=== PATIENT | male | born 1940 | race Caucasian/White ===

== ENCOUNTER → 2019-09-22 13:45 | Outpatient (BNVA) | payer MEDICARE, MEDICAID, SELFPAY | PROVIDERS: Family Provider Family Medicine; PCP Family Medicine; Visit Provider Nurse Practitioner | DX: F20.5 Residual schizophrenia (principal); F33.42 Major depressive disorder, recurrent, in full remission | CPT/HCPCS: 99213 ==

== ENCOUNTER → 2019-12-12 08:23 | Outpatient (BNVA) | payer MEDICARE, MEDICAID, SELFPAY | PROVIDERS: Family Provider Family Medicine; PCP Family Medicine; Visit Provider Nurse Practitioner | DX: F41.1 Generalized anxiety disorder (principal); F33.42 Major depressive disorder, recurrent, in full remission; F20.5 Residual schizophrenia | CPT/HCPCS: 99213 ==

== ENCOUNTER → 2020-04-06 07:44 | Outpatient (BNVA) | payer MEDICARE, MEDICAID, SELFPAY | PROVIDERS: Family Provider Family Medicine; PCP Family Medicine; Visit Provider Nurse Practitioner | DX: F41.1 Generalized anxiety disorder (principal); F33.42 Major depressive disorder, recurrent, in full remission; F20.5 Residual schizophrenia | CPT/HCPCS: 99213 ==

== ENCOUNTER 2020-08-17 09:23 | Inpatient (IN) | payer MEDICARE, MEDICAID, SELFPAY ==
[2020-08-17] VITALS (34 sets, daily range): BP systolic 96–153; BP diastolic 58–103; PULSE 87–109; RESP 15–30; TEMP 36.1–36.6; O2SAT 78–97; BMI 26.2
[2020-08-17 10:17] LABS: ABG PCO2 38.7 mmHg (35-45); ABG PH Result 7.45 (7.35-7.45); Arterial Blood Gas Hematocrit 42.1 % (42-52); Base Excess ABG 2.4 mmol/L (-2.0-2.0); Blood Gas Operator Identificat GD; Blood Gas Sample Site Brachial, left; Blood Gas Sample Type Arterial; HCO3 ABG 26.6 mmol/L (22-26); Oxygen Device NC; PO2 ABG 72.9 mmHg (80.0-100.0)
[2020-08-17 11:14] LABS: Basophils % 0.2 %; Hematocrit 38.4 % (42.0-52.0); Hemoglobin 11.7 g/dL (11.7-16.6); Lymphocytes # 1.5 10^3/uL (0.8-4.8); Lymphocytes % 10.6 %; Mean Corpuscular HGB Conc 30.5 g/dL (30.0-36.0); Mean Corpuscular Volume 101.9 fL (80-94); Mean Platelet Volume 11.2 fL (7.4-10.4); Monocytes # 1.9 10^3/uL (0.2-0.9); Neutrophils # 10.16 10^3/uL (1.8-7.7); Neutrophils % 73.5 %; Nucleated Red Blood Cells % 0 %; Platelet Count 247 10^3/cmm (130-400); Red Blood Count 3.77 10^6/uL (4.1-5.3); Red Cell Distribution Width 13.4 % (12.1-15.1); White Blood Count 13.8 10^3/uL (4.0-10.0)
[2020-08-17 11:33] LABS: Alanine Aminotransferase 21 U/L (0-41); Albumin Level 2.9 g/dL (3.5-5.2); Alkaline Phosphatase 70 IU/L (40-130); Aspartate Amino Transferase 48 U/L (0-40); C Reactive Protein 273.9 mg/L (0.0-4.9); Calcium 10.3 mg/dL (8.5-10.5); Carbon Dioxide 25 mmol/L (22-29); Chloride 105 mmol/L (98-107); Globulin 4.8 g/dL (1.3-4.6); Glucose 233 mg/dL (65-115); Sodium 143 mmol/L (136-145); Total Bilirubin 0.4 mg/dL (0.15-1.2); Total Protein 7.7 g/dL (6.6-8.7)
[2020-08-17 11:34] LABS: D Dimer 8.31 ug/mIFEU (0-0.59)
[2020-08-17 11:36] LABS: Lactic Sepsis W/Reflex 1.1 mmol/L (0.5-2.2)
[2020-08-17 11:41] LABS: Creatine Phosphokinase 1052 U/L (39-308)
[2020-08-17 11:42] LABS: Blood Urea Nitrogen 126 mg/dL (8-23); Osmolality Calculated 344 mOsm/kg (285-295)
--- NOTE | 2020-08-17 11:48 | XR_ITS ---
WS: [id number] XR chest 1V portable [id number] REASON FOR EXAM: dyspnea/cough/COVID FINDINGS: Mild to moderate tortuosity the thoracic aorta without aneurysmal dilatation. The heart is mildly enl arged. Calcified granulomatous changes in both hemithoraces. Marked elevation of the right hemidiaphragm. There are linear densities in the right midlung most com patible with atelectasis. Chronic appearing interstitial changes in both lower lungs. There is some p eribronchial thickening in the right lower lung which may be chronic. No evidence of pleural effusion . Small surgical tamara overlying the left lower lung and cardiac silhouette these were present in 2 017. XR/XR chest 1V portable [id number] IMPRESSION: Chronic appearing changes in the lung bases, however, there is some atelectasis in the right midlung peripherally.
--- NOTE | 2020-08-17 11:50 | W.ED.COVID ---
HPI - COVID General: Chief Complaint: COVID symptoms Stated Complaint: weakness / COVID Time Seen by Provider: 08/17/20 09:31 Triage information: Has fever, cough or shortness of breath. Exposure to COVID + person last 14 days History of Present Illness: HPI Narrative: 80-year-old male resident long-term is moderate dementia 1 week ago he tested positive for Covid. Today comes in complaining of increased oxygen needs. Normally he does not use any oxygen is now requiring 3 to 4 L by nasal cannula to maintain sats in the mid 90s. He is not able to give me any history he will look towards verbal stimuli but does not follow commands or answer questions. MD complaint: known COVID positive Prior covid testing: yes, results known Prior testing date: 08/10/20 COVID 19 common symptoms: positive cough and dyspnea; negative fever(s), chills, fatigue, body aches, throat pain, nasal congestion, nausea, vomiting or diarrhea COVID 19 other sytmptoms: positive requiring more oxygen; negative chest pain Onset (ago): week(s) Severity: moderate Pertinent comorbid conditions: diabetes and hypertension Treatment prior to arrival: oxygen COVID Results: No Data to Display Review of Systems Const: Denies: fever(s), chills, body aches, change in appetite, fatigue or malaise ENMT: Denies: throat pain, ear or mastoid pain, nasal discharge or nasal congestion Card: Denies: chest pain, edema, dyspnea on exertion or orthopnea Resp: Reports: dyspnea GI: Denies: abdominal pain, nausea, vomiting, hematemesis, coffee ground emesis, diarrhea, constipation, bloating, hematochezia or melena : Denies: flank pain, dysuria, urinary frequency or urinary urgency Skin/Breast: Denies: rash or pruritus PFSH ED PFSH: Medical History (Updated 08/17/20 @ 15:37 by Sushil Ash DO) Chronic kidney disease Colostomy in place Diabetes Generalized anxiety disorder Major depressive disorder, recurrent, in full remission Paranoid schizophrenia Residual schizophrenia Restless leg Solitary kidney Social History Smoking and tobacco status: never smoked Physical Exam HENMT: COMMON NORMALS: normocephalic, atraumatic and hearing grossly normal bilaterally HEAD & SCALP: normocephalic and atraumatic Neck/C-Spine: COMMON NORMALS: no JVD Resp: COMMON NORMALS: normal respiratory effort, No retractions, No use of accessory muscles and clear to auscultation bilaterally AUSCULTATION: clear to auscultation bilaterally Cardio: COMMON NORMALS: no JVD, regular rate, regular rhythm and No murmurs present (Cardio) RATE: regular rate RHYTHM: regular rhythm GI: COMMON NORMALS: Soft to palpation and No hepatosplenomegaly present AUSCULTATION: Yes normoactive bowel sounds PALPATION: Yes Soft to palpation, No Tenderness to palpation present (GI), No Guarding due to palpation present (GI) and Yes No hepatosplenomegaly present Extremity: COMMON NORMALS: normal to inspection, capillary refill normal, no clubbing, cyanosis or edema, no calf tenderness and no pedal edema Course Vital Signs: Vital signs: Vital Signs Temperature 97.8 F 08/17/20 09:30 Pulse Rate 96 08/17/20 15:12 Respiratory Rate 18 08/17/20 15:12 Blood Pressure 128/79 08/17/20 15:12 Pulse Oximetry 96 08/17/20 15:12 MDM - COVID MDM Narrative: Medical decision making narrative: Patient has dementia and acute Covid pneumonitis. He is mildly hyponatremic also has acute kidney injury and mild rhabdomyolysis discussed with Dr. Hu and will admit to the [facility] Lab Data: Labs: Lab Results 08/17/20 08/17/20 08/17/20 Range/Units 10:00 11:06 11:06 WBC 13.8 H (4.0-10.0) 10^3/ uL RBC 3.77 L (4.1-5.3) 10^6/u L Hgb 11.7 (11.7-16.6) g/dL Hct 38.4 L (42.0-52.0) % MCV 101.9 H (80-94) fL MCH 31.0 (28.0-34.0) pg MCHC 30.5 (30.0-36.0) g/dL RDW 13.4 (12.1-15.1) % Plt Count 247 (130-400) 10^3/c mm MPV 11.2 H (7.4-10.4) fL Neut % (Auto) 73.5 % Lymph % (Auto) 10.6 % [place] % (Auto) 14.0 % Eos % (Auto) 0.0 % Baso % (Auto) 0.2 % Neut # (Auto) 10.16 H (1.8-7.7) 10^3/u L Lymph # (Auto) 1.5 (0.8-4.8) 10^3/u L [place] # (Auto) 1.9 H (0.2-0.9) 10^3/u L Eos # (Auto) 0.0 (0.0-0.8) 10^3/u L Baso # (Auto) 0.0 (0.0-0.1) 10^3/u L Nucleated RBC % (a uto) 0 % Nucleated RBCs # 0.0 /100WBC D-Dimer 8.31 H (0-0.59) ug/mIFE U Specimen Type Arterial Sample Site Brachial, left ABG pH 7.45 (7.35-7.45) ABG pCO2 38.7 (35-45) mmHg ABG pO2 72.9 L (80.0-100.0) mmH g ABG HCO3 26.6 H (22-26) mmol/L ABG Base Excess 2.4 H (-2.0-2.0) mmol/ L Derrick Test N/a Hematocrit 42.1 (42-52) % O2 Delivery Device Nc O2 Liters/Min 3.0 % FiO2 32.0 % Exceptional Children Teacher ID Gd Sodium (136-145) mmol/L Potassium (3.5-5.1) mmol/L Chloride (98-107) mmol/L Carbon Dioxide (22-29) mmol/L Anion Gap (5-19) BUN (8-23) mg/dL Creatinine (0.7-1.2) mg/dL GFR Calculation Glucose (65-115) mg/dL Calculated Osmolal ity (285-295) mOsm/k g Lactic Acid (0.5-2.2) mmol/L Calcium (8.5-10.5) mg/dL Total Bilirubin (0.15-1.2) mg/dL AST (0-40) U/L ALT (0-41) U/L Alkaline Phosphata se (40-130) IU/L Creatine Kinase (39-308) U/L C-Reactive Protein (0.0-4.9) mg/L Total Protein (6.6-8.7) g/dL Albumin (3.5-5.2) g/dL Globulin (1.3-4.6) g/dL 08/17/20 08/17/20 Range/Units 11:06 11:06 WBC (4.0-10.0) 10^3/ uL RBC (4.1-5.3) 10^6/u L Hgb (11.7-16.6) g/dL Hct (42.0-52.0) % MCV (80-94) fL MCH (28.0-34.0) pg MCHC (30.0-36.0) g/dL RDW (12.1-15.1) % Plt Count (130-400) 10^3/c mm MPV (7.4-10.4) fL Neut % (Auto) % Lymph % (Auto) % [place] % (Auto) % Eos % (Auto) % Baso % (Auto) % Neut # (Auto) (1.8-7.7) 10^3/u L Lymph # (Auto) (0.8-4.8) 10^3/u L [place] # (Auto) (0.2-0.9) 10^3/u L Eos # (Auto) (0.0-0.8) 10^3/u L Baso # (Auto) (0.0-0.1) 10^3/u L Nucleated RBC % (a uto) % Nucleated RBCs # /100WBC D-Dimer (0-0.59) ug/mIFE U Specimen Type Sample Site ABG pH (7.35-7.45) ABG pCO2 (35-45) mmHg ABG pO2 (80.0-100.0) mmH g ABG HCO3 (22-26) mmol/L ABG Base Excess (-2.0-2.0) mmol/ L Derrick Test Hematocrit (42-52) % O2 Delivery Device O2 Liters/Min % FiO2 % Exceptional Children Teacher ID Sodium 143 (136-145) mmol/L Potassium 5.0 (3.5-5.1) mmol/L Chloride 105 (98-107) mmol/L Carbon Dioxide 25 (22-29) mmol/L Anion Gap 18.0 (5-19) BUN 126 H* (8-23) mg/dL Creatinine 4.2 H (0.7-1.2) mg/dL GFR Calculation Not Reportable Glucose 233 H (65-115) mg/dL Calculated Osmolal ity 344 H (285-295) mOsm/k g Lactic Acid 1.1 (0.5-2.2) mmol/L Calcium 10.3 (8.5-10.5) mg/dL Total Bilirubin 0.4 (0.15-1.2) mg/dL AST 48 H (0-40) U/L ALT 21 (0-41) U/L Alkaline Phosphata se 70 (40-130) IU/L Creatine Kinase 1052 H* (39-308) U/L C-Reactive Protein 273.9 H (0.0-4.9) mg/L Total Protein 7.7 (6.6-8.7) g/dL Albumin 2.9 L (3.5-5.2) g/dL Globulin 4.8 H (1.3-4.6) g/dL COVID Results: No Data to Display Discharge Plan Discharge Patient Disposition: Admitted As Inpatient Clinical Impression: Pneumonia due to COVID-19 virus, Acute kidney injury superimposed on chronic kidney disease, Rhabdomyolysis, Diabetes, Chronic kidney disease Condition: Stable Coding Level of Care Code ED Crew Dispatcher for [facility] Fwd Exam Detailed
--- NOTE | 2020-08-17 14:06 | PM.HP ---
Providers/Chief Complaint Primary Care Provider: Joaquin Purdy Jr, MD Chief Complaint: weakness / COVID History of Present Illness Kody Nolan is a 80 year old male, resident of nursing facility presents with shortness of breath, cough and fever. He tested positive approximately 1 week ago. He does not use oxygen at nursing facility and upon presentation he required 3 to 4 L to maintain sats in the mid 90s. Patient is a poor historian but was able to answer questions on review of system. He denied any complaints except being short of breath and having dry cough as well as occasional burning on urination. He has colostomy but does not know why it was placed. He noted to be dehydrated and have acute kidney injury. Reports that he does not walk. He could not move his both legs when I requested. I have discussed with GREGORY Schwarz anhydrous ammonia production supervisor at [facility] who provided more details about patient. Apparently patient can walk with his walker and has shuffling gait and can usually feed himself. 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 Patient has chronic kidney disease and solitary kidney but it is unknown what happened to his second kidney. He is seeing nephrology physicians and hemodialysis was in consideration although patient refused. He is diabetic but noncompliant. He had no previous history of heart disease or stroke. His sister is DPOA. His CODE STATUS is to allow natural . He never smoked and does not drink alcohol. He bears diagnosis of paranoid schizophrenia without significant behavioral disturbance. Review of Systems Narrative: Except as mentioned in HPI. Eyes: Denies: change in vision ENMT: Denies: throat pain or change in hearing Card: Denies: chest pain, edema or lightheadedness Resp: Reports: dyspnea; Denies: productive cough GI: Denies: abdominal pain, nausea, vomiting or dysphagia Musc: Denies: joint pain or joint swelling Skin/Breast: Denies: rash or erythema Neuro: Denies: headache(s) Psych: Denies: depression Endo: Denies: excessive sweating Ba/Lymph: Denies: easy bleeding or tender lymph nodes All/Imm: Denies: throat swelling Medications/Allergies Home Medications Medication Instructions Recorded Confirmed Last Taken Type acetaminophen 325 mg tablet 650 mg PO BID@09/22/19 08/17/20 08/16/20 History allopurinol 100 mg tablet 100 mg PO DAILY@08 09/22/19 08/17/20 08/16/20 History cholecalciferol (vitamin D3) 50 50 mcg PO Q7D cap 09/22/19 08/17/20 08/16/20 History mcg (2,000 unit) capsule clonazepam 0.5 mg tablet 0.25 mg PO DAILY@20 tab 09/22/19 08/17/20 08/16/20 History divalproex 250 mg tablet,delayed 250 mg PO TID@,,09/22/19 08/17/20 08/16/20 History release doxazosin 1 mg tablet 1 mg PO DAILY@20 09/22/19 08/17/20 08/16/20 History fentanyl 25 mcg/hr transdermal 1 patch TRANSDERMA Q72H 09/22/19 08/17/20 08/15/20 History patch last changed gabapentin 100 mg capsule 100 mg PO BID@,18 09/22/19 08/17/20 08/16/20 History hydrocodone 5 mg-acetaminophen 325 1 tab PO Q4H PRN 09/22/19 08/17/20 08/12/20 History mg tablet insulin aspart U-100 100 unit/mL 5 unit SUBCUT BID 09/22/19 08/17/20 08/16/20 History (3 mL) subcutaneous pen insulin degludec 100 unit/mL (3 60 unit SUBCUT DAILY@20 ml 09/22/19 08/17/20 08/16/20 History mL) subcutaneous pen memantine 5 mg tablet 5 mg PO BID@,09/22/19 08/17/20 08/16/20 History pantoprazole 20 mg tablet,delayed 20 mg PO DAILY@09/22/19 08/17/20 08/17/20 History release rosuvastatin 5 mg tablet 2.5 mg PO DAILY@20 09/22/19 08/17/20 08/16/20 History ziprasidone HCl 60 mg capsule 60 mg PO BID@,09/22/19 08/17/20 08/16/20 History Lactobacillus acidophilus 1,000 mmu cells PO BID@,08/17/20 08/17/20 08/17/20 History [Acidophilus] acetaminophen [Tylenol] 650 mg PO Q6H PRN 08/17/20 08/17/20 Unknown History alprazolam 0.25 mg PO DAILY PRN 08/17/20 08/17/20 Unknown History alum-mag hydroxide-simeth 10 ml PO BID PRN 08/17/20 08/17/20 Unknown History [Alejandar-Lanta] carboxymethylcellulose sodium 1 - 2 drp OPHTHALMIC (EYE) Q6H PRN 08/17/20 08/17/20 Unknown History [Refresh] ketotifen fumarate 2 drp OPHTHALMIC (EYE) BID@08/17/20 08/17/20 08/16/20 History levofloxacin [Levaquin] See Rx Instructions .ROUTE .COMPLEX 08/17/20 08/17/20 08/16/20 History polyvinyl alcohol [LiquiTears] 1 drp OPHTHALMIC (EYE) TID@,,08/17/20 08/17/20 08/16/20 History sodium bicarbonate 650 mg PO BID@,08/17/20 08/17/20 08/17/20 History Allergies Allergy/AdvReac Type Severity Reaction Status Date / Time influenza A (H5N1) virus Allergy hives Verified 12/09/19 13:09 vaccine mo PFSH Acute PFSH: Medical History (Updated 08/17/20 @ 14:39 by Diogo Massey MD) Chronic kidney disease Colostomy in place Diabetes Generalized anxiety disorder Major depressive disorder, recurrent, in full remission Paranoid schizophrenia Residual schizophrenia Restless leg Solitary kidney Social History Smoking and tobacco status: never smoked Vitals/I&O/Wt Last Vital Signs Temp 97.8 F 08/17/20 09:30 Pulse 96 08/17/20 13:14 Resp 18 08/17/20 13:14 BP 141/79 08/17/20 13:14 Pulse Ox 96 08/17/20 13:14 Weight last 48 hrs Weight 83.007 kg Physical Exam Const: COMMON NORMALS: no acute distress and patient oriented x3 (Oriented to self and place. Was able to recall name of president.) HENMT: COMMON NORMALS: normocephalic and atraumatic HEAD & SCALP: normocephalic and atraumatic Eye: COMMON NORMALS: EOMs intact bilaterally, conjunctivae normal and no scleral icterus CONJUNCTIVA: Yes conjunctivae normal Neck/C-Spine: COMMON NORMALS: no lymphadenopathy and no meningeal signs Lymph: LYMPHATIC: no lymphadenopathy noted Chest: COMMONS NORMALS: normal palpation of entire chest wall Resp: COMMON NORMALS: No use of accessory muscles OTHER: Bibasilar Rales Cardio: COMMON NORMALS: regular rate, regular rhythm and No murmurs present (Cardio) RATE: regular rate RHYTHM: regular rhythm OTHER: No lower extremity edema GI: COMMON NORMALS: Soft to palpation and non-tender RECTAL EXAM: Yes deferred OTHER: Ostomy functioning. Extremity: COMMON NORMALS: normal to inspection and capillary refill normal Neuro: COMMON NORMALS: no focal motor deficits (Neuro exam is limited. Has bilateral upper extremity resting tremors.) SENSORIUM/ORIENTATION: Yes alert Psych: COMMON NORMALS: cooperative (At times does not answer when a more complex question is asked) Skin: COMMON NORMALS: no rashes or lesions noted GENERAL SKIN EXAM: no rashes or lesions noted Data : 08/17/20 11:06 08/17/20 11:06 A&P Assessment and plan (1) Pneumonia due to COVID-19 virus: Status: Acute (2) Acute respiratory failure with hypoxia: Status: Acute (3) Solitary kidney: Status: Acute (4) Paranoid schizophrenia: Status: Acute (5) Acute kidney injury superimposed on chronic kidney disease: Status: Acute (6) Diabetes: Status: Acute (7) Dehydration: Status: Acute (8) Rhabdomyolysis: Status: Acute Additional A&P Information PLAN: Admit to VICU We will treat patient with dexamethasone and remdesivir. Add ceftriaxone for possible bacterial coinfection. Start patient on IV fluids half-normal saline at 150 mL/h with monitoring of cardiorespiratory status. Patient may require diuresis down the road. We will place Zurita catheter for close ins and outs. Obtain UA to rule out UTI. CTA currently pending. Will initiate Lovenox 30 mg for DVT prophylaxis and transition to therapeutic anticoagulation should there be any evidence of PE Repeat labs in a.m. Physical and Occupational Therapy Attestations Medical Necessity Statement*: Patient with respiratory failure due to COVID-19 pneumonia requires close ICU monitoring and treatment. I expect patient will require more than 2 midnights. Time Spent in Patient Care: Greater than 35 minutes Coding Level of Care Code Acute Biological Science Aide for [facility] Fwd Diagnoses Pneumonia due to COVID-19 virus U07.1; J12.89 Acute respiratory failure with hypoxia J96.01 Solitary kidney Q60.0 Paranoid schizophrenia F20.0 Acute kidney injury superimposed on chronic kidney disease N17.9; N18.9 Diabetes E11.9 Dehydration E86.0 Rhabdomyolysis M62.82
[2020-08-17] MEDS: remdesivir 200 MG in sodium chloride 0.9% (100 ml) 100 ML 100 MG IV (15:00)
--- NOTE | 2020-08-17 19:39 | PC.NURSE ---
Report given to Kye Ríos. Shift summary: Pt just arrived shortly before shift change. Left AC IV noted. Pt able to make his need for a drink know, drink provided. He is on 4lpm/NC. he has a colostomy lower right abdomen and incontinence briefs on. HIs skin is very pale and dry. The monitor patches make his skin pink. Physical admission assessment completed.. THe rest of the admission needs to be completed.
[2020-08-17 20:06] LABS: Bilirubin Urine Neg (Negative); Blood Urine 3+ (Negative); Glucose Urine UA Norm (Normal); Ketones Urine Negative (Negative); Leukocyte Esterase Urine Negative (Negative); Nitrate Urine Negative (Negative); Protein Urine 1+ (Negative); Urine Color Yellow (Yellow); Urobilinogen Urine Norm (Negative); pH Urine 5 (5-7)
[2020-08-17 20:07] LABS: Add Urine Microscopic? YES
[2020-08-17 20:09] LABS: Add Urine Culture? Yes; Amorphous Sediment Urine 2+ /hpf; Bacteria Urine 2+ /hpf; Squamous Epithelial Cell Urine 0-4 /hpf (0-5); WBC Urine 0-4 /hpf (0-5)
[2020-08-17] MEDS: sodium chloride 0.45% 1,000 ML 150 ML IV (20:35)
[2020-08-17] MEDS: cefTRIAXone 2,000 MG in sodium chloride 0.9% (plus) 50 ML 100 MG IV (20:36)
[2020-08-17] MEDS: dexamethasone 4 mg/mL INJ 6 MG IVP (20:38)
[2020-08-17] MEDS: atorvastatin 40 mg Tablet 20 MG PO (20:42)
[2020-08-17] MEDS: gabapentin 100 mg Capsule PO (20:43)
[2020-08-17] MEDS: ziprasidone hcl 60 mg Capsule PO (20:44)
[2020-08-17] MEDS: enoxaparin 30 mg/0.3 mL Syringe SUBCUT (20:44)
[2020-08-17] MEDS: doxazosin 1 mg Tablet PO (20:45)
[2020-08-17] MEDS: divalproex DR 250 mg Tablet PO (20:45)
[2020-08-17] MEDS: fentaNYL 25 mcg Patch 1 PATCH TRANSDERMA (21:47)
[2020-08-17] MEDS: CLONazepam 0.5 mg Tablet 0.25 MG PO (21:48)
--- NOTE | 2020-08-17 21:57 | PC.NURSE ---
Addendum entered by Doug Nam RN 08/18/20 02:48: Witnessed Bell Trujillo RN waste 0.25 mg of Clonazepam Original Note: Wasted 0.25mg clonazepam, witnessed by Alvina Nam
[2020-08-17] MEDS: sodium bicarbonate 650 mg Tablet PO (22:03)
[2020-08-17] MEDS: acetaminophen 325 mg Tablet 650 MG PO (22:04)
[2020-08-18] VITALS (63 sets, daily range): BP systolic 110–172; BP diastolic 52–134; PULSE 54–129; RESP 14–30; TEMP 36.3–37; O2SAT 76–100; BMI 26.2
[2020-08-18] MEDS: sodium chloride 0.45% 1,000 ML 150 ML IV (04:43)
[2020-08-18 05:14] LABS: Basophils % 0.2 %; Hematocrit 34.1 % (42.0-52.0); Hemoglobin 10.3 g/dL (11.7-16.6); Lymphocytes # 1.2 10^3/uL (0.8-4.8); Lymphocytes % 8.5 %; Mean Corpuscular HGB Conc 30.2 g/dL (30.0-36.0); Mean Corpuscular Hemoglobin 30.8 pg (28.0-34.0); Mean Corpuscular Volume 102.1 fL (80-94); Mean Platelet Volume 11.9 fL (7.4-10.4); Monocytes # 0.6 10^3/uL (0.2-0.9); Monocytes % 3.8 %; Neutrophils # 12.54 10^3/uL (1.8-7.7); Neutrophils % 85.8 %; Nucleated Red Blood Cells % 0 %; Platelet Count 241 10^3/cmm (130-400); Red Blood Count 3.34 10^6/uL (4.1-5.3); Red Cell Distribution Width 13.4 % (12.1-15.1); White Blood Count 14.6 10^3/uL (4.0-10.0)
[2020-08-18 05:39] LABS: Alanine Aminotransferase 22 U/L (0-41); Albumin Level 3.1 g/dL (3.5-5.2); Alkaline Phosphatase 66 IU/L (40-130); Anion Gap 18.9 (5-19); Aspartate Amino Transferase 52 U/L (0-40); Calcium 9.8 mg/dL (8.5-10.5); Carbon Dioxide 27 mmol/L (22-29); Chloride 98 mmol/L (98-107); Glucose 142 mg/dL (65-115); Potassium 4.9 mmol/L (3.5-5.1); Sodium 139 mmol/L (136-145); Total Bilirubin 0.3 mg/dL (0.15-1.2); Total Protein 7.1 g/dL (6.6-8.7)
[2020-08-18 05:50] LABS: Blood Urea Nitrogen 127 mg/dL (8-23); Osmolality Calculated 331 mOsm/kg (285-295)
[2020-08-18] MEDS: pantoprazole DR 40 mg Tablet PO (06:02)
[2020-08-18 08:10] LABS: Glucose Point of Care 211 mg/dL (70-110)
--- NOTE | 2020-08-18 08:21 | PM.PN ---
Subjective Subjective: Interval history: Patient appears better. Denies chest pain or abdominal pain. His breathing improved. Kidney function did not improve much and we could possibly have new creatinine baseline. Hemoglobin stable. Vitals/I&O/Wt Last Vital Signs Temp 98.6 F 08/18/20 03:15 Pulse 77 08/18/20 06:15 Resp 18 08/18/20 06:15 BP 150/81 08/18/20 06:00 Pulse Ox 84 L 08/18/20 06:15 08/17/20 08/18/20 08/18/20 22:59 06:59 14:59 Intake Total 510 / 510 1240 / 1750 Output Total 75 / 75 775 / 850 Balance 435 / 435 465 / 900 Weight last 48 hrs Weight 73.573 kg Weight 83.007 kg Weight 83.007 kg Physical Exam Const: COMMON NORMALS: no acute distress and patient oriented x3 Resp: COMMON NORMALS: normal respiratory effort OTHER: Bibasilar Rales. Cardio: COMMON NORMALS: regular rate, regular rhythm and S2 normal heart sound present RATE: regular rate RHYTHM: regular rhythm HEART SOUNDS: S2 normal heart sound present OTHER: No lower extremity edema GI: COMMON NORMALS: Normal to inspection, nondistended, normoactive bowel sounds present, Soft to palpation and non-tender PALPATION: Yes Soft to palpation Neuro: COMMON NORMALS: patient oriented x3 and no focal motor deficits Urinary Catheter Management^: Zurita: Cath Placed During This Visit: yes Reason for Continuing Indwelling Catheter: Accurate Measurement of Urinary Output in Critically Ill Patients Urinary Catheter Date of Insertion: 08/17/20 Urinary Catheter Time of Insertion: 19:50 Data : 08/18/20 03:50 08/18/20 03:50 A&P Assessment and plan (1) Pneumonia due to COVID-19 virus: Status: Acute (2) Acute respiratory failure with hypoxia: Status: Acute (3) Solitary kidney: Status: Acute (4) Paranoid schizophrenia: Status: Acute (5) Acute kidney injury superimposed on chronic kidney disease: Status: Acute (6) Diabetes: Status: Acute (7) Dehydration: Status: Acute (8) Rhabdomyolysis: Status: Acute Additional A&P Information PLAN: Continue with current IV fluids with monitoring of urinary output and cardiopulmonary status but will decrease rate to 75 mill per hour. Check CK in a.m. Continue ceftriaxone, dexamethasone and remdesivir for now despite kidney function as I think patient's benefit outweighs risk. Physical and Occupational Therapy Attestations Medical Necessity Statement*: Patient with COVID-19 pneumonia and respiratory failure along with multiple other comorbidities requires close ICU monitoring and treatment. Time Spent in Patient Care: 16 - 35 minutes Coding Level of Care Code Acute Putty And Patch Worker for [facility] Fwd Diagnoses Pneumonia due to COVID-19 virus U07.1; J12.89 Acute respiratory failure with hypoxia J96.01 Solitary kidney Q60.0 Paranoid schizophrenia F20.0 Acute kidney injury superimposed on chronic kidney disease N17.9; N18.9 Diabetes E11.9 Dehydration E86.0 Rhabdomyolysis M62.82
[2020-08-18] MEDS: sodium chloride 0.45% 1,000 ML 75 ML IV ×2 (08:56→14:02)
[2020-08-18] MEDS: allopurinol 100 mg Tablet PO (08:57)
[2020-08-18] MEDS: sodium bicarbonate 650 mg Tablet PO ×2 (08:57→19:52)
[2020-08-18] MEDS: lactobacillus 1 Tablet 1 TAB PO ×2 (08:58→19:44)
[2020-08-18] MEDS: gabapentin 100 mg Capsule PO ×2 (08:59→17:50)
[2020-08-18] MEDS: ziprasidone hcl 60 mg Capsule PO ×2 (08:59→19:45)
[2020-08-18] MEDS: divalproex DR 250 mg Tablet PO ×3 (08:59→19:44)
[2020-08-18] MEDS: artificial tears Op Soln 15 mL Btl 1 DROP EYEAFF ×3 (09:00→19:47)
[2020-08-18] MEDS: acetaminophen 325 mg Tablet 650 MG PO ×2 (09:05→17:50)
[2020-08-18 11:48] LABS: Glucose Point of Care 337 mg/dL (70-110)
--- NOTE | 2020-08-18 13:22 | PC.OT ---
OT attempted to rouse patient twice for evaluation, patient remained asleep, will attempt again later.
--- NOTE | 2020-08-18 14:08 | PC.NURSE ---
Pt must be fed at meals, he tends to pocket food in both cheeks. Did inform Dr Cardenas about ordering a speech eval, he gave verbal order for this. Did place patient on mechanical soft diet until therapy sees him.
[2020-08-18] MEDS: dexamethasone 4 mg/mL INJ 6 MG IVP (16:44)
[2020-08-18 16:57] LABS: Glucose Point of Care 246 mg/dL (70-110)
--- NOTE | 2020-08-18 17:22 | PC.PT ---
PT note; unable to arouse patient for PT evaluation ?2 attempts, patient nurse feels patient should continue resting; will reattempt evaluation tomorrow
[2020-08-18] MEDS: remdesivir 100 MG in sodium chloride 0.9% (100 ml) 100 ML IV (17:48)
[2020-08-18] MEDS: enoxaparin 30 mg/0.3 mL Syringe SUBCUT (17:50)
[2020-08-18] MEDS: doxazosin 1 mg Tablet PO (19:44)
[2020-08-18] MEDS: cefTRIAXone 2,000 MG in sodium chloride 0.9% (plus) 50 ML 100 MG IV (19:46)
[2020-08-18] MEDS: atorvastatin 40 mg Tablet 20 MG PO (19:46)
[2020-08-18] MEDS: CLONazepam 0.5 mg Tablet 0.25 MG PO (19:59)
[2020-08-19] VITALS (28 sets, daily range): BP systolic 111–150; BP diastolic 53–85; PULSE 54–102; RESP 17–30; TEMP 36.4–37.1; O2SAT 91–99
[2020-08-19] MEDS: sodium chloride 0.45% 1,000 ML 75 ML IV (02:23)
[2020-08-19] MEDS: pantoprazole DR 40 mg Tablet PO (05:05)
[2020-08-19 05:29] LABS: Creatine Phosphokinase 389 U/L (39-308)
--- NOTE | 2020-08-19 05:36 | PC.NURSE ---
Notified patient's nurse of critical CK.
[2020-08-19 06:23] LABS: Glucose Point of Care 301 mg/dL (70-110)
[2020-08-19 07:28] LABS: Glucose Point of Care 300 mg/dL (70-110)
[2020-08-19] MEDS: acetaminophen 325 mg Tablet 650 MG PO ×2 (07:49→17:12)
[2020-08-19] MEDS: ziprasidone hcl 60 mg Capsule PO ×2 (07:49→20:21)
[2020-08-19] MEDS: lactobacillus 1 Tablet 1 TAB PO ×2 (07:49→20:46)
[2020-08-19] MEDS: sodium bicarbonate 650 mg Tablet PO ×2 (07:50→20:21)
[2020-08-19] MEDS: divalproex DR 250 mg Tablet PO ×3 (07:50→20:19)
[2020-08-19] MEDS: gabapentin 100 mg Capsule PO ×2 (07:50→17:12)
[2020-08-19] MEDS: allopurinol 100 mg Tablet PO (07:51)
[2020-08-19] MEDS: artificial tears Op Soln 15 mL Btl 1 DROP EYEAFF ×3 (07:51→20:14)
--- NOTE | 2020-08-19 08:14 | PC.NURSE ---
Pt did better with soft breakfast, no choking or pocketing of food today. Did take am meds without difficulty.
--- NOTE | 2020-08-19 08:24 | P.PN_ITS ---
Subjective Subjective: Interval history: Patient appears further improving. Denies chest pain or abdominal pain. Labs are pending this morning. Patient had speech therapy evaluation yesterday and he is diet was changed to dysphagia level 2. Vitals/I&O/Wt Last Vital Signs Temp 97.7 F 08/19/20 04:00 Pulse 66 08/19/20 06:00 Resp 20 H 08/19/20 06:00 BP 131/68 08/19/20 06:00 Pulse Ox 96 08/19/20 06:00 08/18/20 08/19/20 08/19/20 22:59 06:59 14:59 Intake Total 3145 / 4880.0 1735.25 / 6615.25 Output Total 1100 / 1700 675 / 2375 Balance 2045 / 3180.0 1060.25 / 4240.25 Weight last 48 hrs Weight 78.653 kg Weight 73.573 kg Weight 83.007 kg Weight 83.007 kg Physical Exam Const: COMMON NORMALS: no acute distress Resp: COMMON NORMALS: normal respiratory effort OTHER: Bibasilar Rales. Cardio: COMMON NORMALS: regular rate, regular rhythm and S2 normal heart sound present RATE: regular rate RHYTHM: regular rhythm HEART SOUNDS: S2 normal heart sound present OTHER: No lower extremity edema GI: COMMON NORMALS: Normal to inspection, nondistended, normoactive bowel sounds present, Soft to palpation and non-tender PALPATION: Yes Soft to palpation OTHER: Ostomy functioning. Neuro: COMMON NORMALS: no focal motor deficits Urinary Catheter Management^: Zurita: Cath Placed During This Visit: yes Reason for Continuing Indwelling Catheter: Accurate Measurement of Urinary Output in Critically Ill Patients Urinary Catheter Date of Insertion: 08/17/20 Urinary Catheter Time of Insertion: 19:50 Data : 08/18/20 03:50 08/18/20 03:50 A&P Assessment and plan (1) Pneumonia due to COVID-19 virus: Status: Acute (2) Acute respiratory failure with hypoxia: Status: Acute (3) Solitary kidney: Status: Acute (4) Paranoid schizophrenia: Status: Acute (5) Acute kidney injury superimposed on chronic kidney disease: Status: Acute (6) Diabetes: Status: Acute (7) Dehydration: Status: Acute (8) Rhabdomyolysis: Status: Acute (9) Oropharyngeal dysphagia: Status: Acute Additional A&P Information PLAN: We will discontinue IV fluids as patient's oral intake appears to be adequate. I doubt patient's kidney function will improve much. Patient may require hemodialysis down the road but he previously refused as I was told by nursing facility RN. We will add Flagyl to cover anaerobes as very much possible patient has element of aspiration pneumonia. Check valproic acid level in a.m. Awaiting morning labs. We are trying to find out how much urine was obtained when Zurita catheter was placed. Plan to remove Zurita catheter and if patient continues to improve we will likely be able to dismiss him back to nursing facility in a day or 2. Attestations Medical Necessity Statement*: Patient with hypoxic respiratory failure requires close ICU monitoring and treatment. Time Spent in Patient Care: 16 - 35 minutes Coding Level of Care Code Acute Clinical Education Assistant for g Fwd Diagnoses Pneumonia due to COVID-19 virus U07.1; J12.89 Acute respiratory failure with hypoxia J96.01 Solitary kidney Q60.0 Paranoid schizophrenia F20.0 Acute kidney injury superimposed on chronic kidney disease N17.9; N18.9 Diabetes E11.9 Dehydration E86.0 Rhabdomyolysis M62.82 Oropharyngeal dysphagia R13.12
[2020-08-19] MEDS: metroNIDAZOLE 500 MG Tablet PO ×3 (09:58→20:21)
[2020-08-19 11:48] LABS: Glucose Point of Care 319 mg/dL (70-110)
--- NOTE | 2020-08-19 12:49 | PC.OT ---
Occupational therapy evaluation held per nursing.
[2020-08-19 16:12] LABS: Basophils % 0.1 %; Hematocrit 30.1 % (42.0-52.0); Hemoglobin 9.7 g/dL (11.7-16.6); Lymphocytes # 1.1 10^3/uL (0.8-4.8); Lymphocytes % 9.1 %; Mean Corpuscular HGB Conc 32.2 g/dL (30.0-36.0); Mean Corpuscular Hemoglobin 31.3 pg (28.0-34.0); Mean Corpuscular Volume 97.1 fL (80-94); Mean Platelet Volume 12.4 fL (7.4-10.4); Monocytes # 1.1 10^3/uL (0.2-0.9); Neutrophils # 9.37 10^3/uL (1.8-7.7); Neutrophils % 79.9 %; Nucleated Red Blood Cells % 0 %; Platelet Count 222 10^3/cmm (130-400); Red Cell Distribution Width 12.7 % (12.1-15.1); White Blood Count 11.7 10^3/uL (4.0-10.0)
[2020-08-19 16:46] LABS: Glucose Point of Care 182 mg/dL (70-110)
[2020-08-19 16:53] LABS: Alanine Aminotransferase 20 U/L (0-41); Albumin Level 2.6 g/dL (3.5-5.2); Alkaline Phosphatase 61 IU/L (40-130); Anion Gap 19.4 (5-19); Aspartate Amino Transferase 33 U/L (0-40); Calcium 9.1 mg/dL (8.5-10.5); Carbon Dioxide 22 mmol/L (22-29); Chloride 98 mmol/L (98-107); Globulin 3.7 g/dL (1.3-4.6); Glucose 157 mg/dL (65-115); Potassium 4.4 mmol/L (3.5-5.1); Sodium 135 mmol/L (136-145); Total Bilirubin 0.2 mg/dL (0.15-1.2); Total Protein 6.3 g/dL (6.6-8.7)
[2020-08-19 17:10] LABS: Osmolality Calculated 321 mOsm/kg (285-295)
[2020-08-19 17:12] LABS: Blood Urea Nitrogen 117 mg/dL (8-23)
[2020-08-19] MEDS: dexamethasone 4 mg/mL INJ 6 MG IVP (17:12)
[2020-08-19] MEDS: remdesivir 100 MG in sodium chloride 0.9% (100 ml) 100 ML IV (17:58)
[2020-08-19] MEDS: enoxaparin 30 mg/0.3 mL Syringe SUBCUT (18:10)
[2020-08-19] MEDS: atorvastatin 40 mg Tablet 20 MG PO (20:15)
[2020-08-19] MEDS: cefTRIAXone 2,000 MG in sodium chloride 0.9% (plus) 50 ML 100 MG IV (20:16)
[2020-08-19] MEDS: doxazosin 1 mg Tablet PO (20:20)
[2020-08-19] MEDS: CLONazepam 0.5 mg Tablet 0.25 MG PO (20:40)
[2020-08-19 23:30] LABS: Glucose Point of Care 224 mg/dL (70-110)
[2020-08-20] VITALS (16 sets, daily range): BP systolic 111–156; BP diastolic 52–93; PULSE 51–169; RESP 19–30; TEMP 36.5–36.6; O2SAT 91–97; BMI 24.8
[2020-08-20 04:48] LABS: Basophils % 0.1 %; Hematocrit 34.8 % (42.0-52.0); Hemoglobin 10.9 g/dL (11.7-16.6); Lymphocytes # 0.8 10^3/uL (0.8-4.8); Lymphocytes % 8.9 %; Mean Corpuscular HGB Conc 31.3 g/dL (30.0-36.0); Mean Corpuscular Volume 98.9 fL (80-94); Mean Platelet Volume 11.8 fL (7.4-10.4); Monocytes # 0.3 10^3/uL (0.2-0.9); Monocytes % 3.3 %; Neutrophils % 85.3 %; Nucleated Red Blood Cells % 0 %; Platelet Count 258 10^3/cmm (130-400); Red Blood Count 3.52 10^6/uL (4.1-5.3); Red Cell Distribution Width 12.8 % (12.1-15.1); White Blood Count 9.5 10^3/uL (4.0-10.0)
[2020-08-20 05:11] LABS: Alanine Aminotransferase 22 U/L (0-41); Albumin Level 2.9 g/dL (3.5-5.2); Alkaline Phosphatase 66 IU/L (40-130); Anion Gap 18.3 (5-19); Aspartate Amino Transferase 31 U/L (0-40); Calcium 9.3 mg/dL (8.5-10.5); Carbon Dioxide 22 mmol/L (22-29); Chloride 98 mmol/L (98-107); Creatine Phosphokinase 175 U/L (39-308); Glucose 317 mg/dL (65-115); Magnesium 2.3 mg/dL (1.7-2.3); Potassium 4.3 mmol/L (3.5-5.1); Sodium 134 mmol/L (136-145); Total Bilirubin 0.3 mg/dL (0.15-1.2); Total Protein 6.9 g/dL (6.6-8.7)
[2020-08-20] MEDS: pantoprazole DR 40 mg Tablet PO (05:36)
[2020-08-20 05:50] LABS: Blood Urea Nitrogen 130 mg/dL (8-23); Osmolality Calculated 332 mOsm/kg (285-295)
[2020-08-20 07:38] LABS: Glucose Point of Care 318 mg/dL (70-110)
[2020-08-20] MEDS: lactobacillus 1 Tablet 1 TAB PO (08:21)
[2020-08-20] MEDS: metroNIDAZOLE 500 MG Tablet PO (08:21)
[2020-08-20] MEDS: ziprasidone hcl 60 mg Capsule PO (08:21)
[2020-08-20] MEDS: sodium bicarbonate 650 mg Tablet PO (08:21)
[2020-08-20] MEDS: acetaminophen 325 mg Tablet 650 MG PO (08:22)
[2020-08-20] MEDS: allopurinol 100 mg Tablet PO (08:22)
[2020-08-20] MEDS: artificial tears Op Soln 15 mL Btl 1 DROP EYEAFF (08:22)
[2020-08-20] MEDS: gabapentin 100 mg Capsule PO (08:22)
[2020-08-20] MEDS: divalproex DR 250 mg Tablet PO (08:22)
--- NOTE | 2020-08-20 09:03 | P.DS_ITS ---
Discharge Providers Date of Admission: 08/17/20 13:53 Date of Discharge: August 20, 2020 Attending Provider at Admission: Diogo Massey MD Attending Provider at Discharge: Diogo Massey MD Primary Care Provider: Joaquin Purdy Jr, MD Diagnoses at Discharge Discharge Diagnosis (1) Pneumonia due to COVID-19 virus: Status: Acute (2) Acute respiratory failure with hypoxia: Status: Acute (3) Solitary kidney: Status: Acute (4) Paranoid schizophrenia: Status: Acute (5) Acute kidney injury superimposed on chronic kidney disease: Status: Acute (6) Diabetes: Status: Acute (7) Dehydration: Status: Acute (8) Rhabdomyolysis: Status: Acute (9) Oropharyngeal dysphagia: Status: Acute Reason for Visit Reason for Visit: weakness / COVID Hospital Course Hospital Course Patient presented dehydrated with acute hypoxic respiratory failure and COVID-19 infection. Patient's pneumonia felt to be a combination of COVID-19 and likely some degree of aspiration pneumonia/pneumonitis. Patient was started on remdesivir and dexamethasone. Patient was noted to pocket his food and was seen by speech therapy. Dysphagia diet was recommended. Patient was treated with ceftriaxone and Flagyl due to high suspicion for concurrent aspiration pneumonia/pneumonitis. Patient did great and this morning he is breathing on room air and saturates in mid 90s. He denies any complaints he has good oral intake and appetite. Urinates without difficulty. Patient has chronic kidney disease and solitary kidney and apparently there were discussion previously to consider hemodialysis. Patient's BUN appears to be chronically elevated. I will request outpatient follow-up with Dr. Warner. Patient is definitely a high risk for readmissions related to pneumonia. Physical Exam Const: COMMON NORMALS: no acute distress Resp: COMMON NORMALS: normal respiratory effort and clear to auscultation bilaterally AUSCULTATION: clear to auscultation bilaterally Cardio: COMMON NORMALS: regular rate, regular rhythm and S2 normal heart sound present RATE: regular rate RHYTHM: regular rhythm HEART SOUNDS: S2 normal heart sound present OTHER: No lower extremity edema GI: COMMON NORMALS: Normal to inspection, nondistended, normoactive bowel sounds present, Soft to palpation and non-tender PALPATION: Yes Soft to palpation Neuro: COMMON NORMALS: no focal motor deficits Urinary Catheter Management^: Zurita: Cath Placed During This Visit: yes Reason for Continuing Indwelling Catheter: Accurate Measurement of Urinary Output in Critically Ill Patients Urinary Catheter Date of Insertion: 08/17/20 Urinary Catheter Time of Insertion: 19:50 Discharge Data Data Completed and Pending: Completed Studies During Hospitalization Category Date Time Status XR chest 1V tj ble [id number] Stat Exams 08/17/20 11:48 Completed Pending at discharge Category Date Time Status Complete Blood Co unt w/Auto AM LABS Lab 08/21/20 04:00 Ordered Complete Blood Co unt w/Auto AM LABS Lab 08/22/20 04:00 Ordered Comprehensive Met abolic Panel AM LA BS Lab 08/21/20 04:00 Ordered Comprehensive Met abolic Panel AM LA BS Lab 08/22/20 04:00 Ordered Creatine Phosphok inase AM LABS Lab 08/21/20 04:00 Ordered Magnesium AM LABS Lab 08/21/20 04:00 Ordered Magnesium AM LABS Lab 08/22/20 04:00 Ordered Sputum Culture an d Gram Stain Stat Lab 08/17/20 09:45 Uncollected Labs from last 24 hours 08/20/20 08/20/20 08/20/20 07:22 04:30 04:30 WBC RBC Hgb Hct MCV MCH MCHC RDW Plt Count MPV Neut % (Auto) Lymph % (Auto) [place] % (Auto) Eos % (Auto) Baso % (Auto) Neut # (Auto) Lymph # (Auto) [place] # (Auto) Eos # (Auto) Baso # (Auto) Nucleated RBC % (a uto) Nucleated RBCs # Sodium 134 L Potassium 4.3 Chloride 98 Carbon Dioxide 22 Anion Gap 18.3 BUN 130 H* Creatinine 2.8 H GFR Calculation Not Reportable Glucose 317 H POC Glucose 318 Calculated Osmolal ity 332 H Calcium 9.3 Magnesium 2.3 Total Bilirubin 0.3 AST 31 ALT 22 Alkaline Phosphata se 66 Creatine Kinase 175 Total Protein 6.9 Albumin 2.9 L Globulin 4.0 Valproic Acid 33.0 L 08/20/20 08/19/20 08/19/20 04:30 22:27 16:34 WBC 9.5 RBC 3.52 L Hgb 10.9 L Hct 34.8 L MCV 98.9 H MCH 31.0 MCHC 31.3 RDW 12.8 Plt Count 258 MPV 11.8 H Neut % (Auto) 85.3 Lymph % (Auto) 8.9 [place] % (Auto) 3.3 Eos % (Auto) 0.0 Baso % (Auto) 0.1 Neut # (Auto) 8.10 H Lymph # (Auto) 0.8 [place] # (Auto) 0.3 Eos # (Auto) 0.0 Baso # (Auto) 0.0 Nucleated RBC % (a uto) 0 Nucleated RBCs # 0.0 Sodium Potassium Chloride Carbon Dioxide Anion Gap BUN Creatinine GFR Calculation Glucose POC Glucose 224 182 Calculated Osmolal ity Calcium Magnesium Total Bilirubin AST ALT Alkaline Phosphata se Creatine Kinase Total Protein Albumin Globulin Valproic Acid 08/19/20 08/19/20 08/19/20 16:13 15:46 11:37 WBC 11.7 H RBC 3.10 L Hgb 9.7 L Hct 30.1 L MCV 97.1 H MCH 31.3 MCHC 32.2 RDW 12.7 Plt Count 222 MPV 12.4 H Neut % (Auto) 79.9 Lymph % (Auto) 9.1 [place] % (Auto) 9.0 Eos % (Auto) 0.0 Baso % (Auto) 0.1 Neut # (Auto) 9.37 H Lymph # (Auto) 1.1 [place] # (Auto) 1.1 H Eos # (Auto) 0.0 Baso # (Auto) 0.0 Nucleated RBC % (a uto) 0 Nucleated RBCs # 0.0 Sodium 135 L Potassium 4.4 Chloride 98 Carbon Dioxide 22 Anion Gap 19.4 H BUN 117 H* Creatinine 2.8 H GFR Calculation Not Reportable Glucose 157 H POC Glucose 319 Calculated Osmolal ity 321 H Calcium 9.1 Magnesium Total Bilirubin 0.2 AST 33 ALT 20 Alkaline Phosphata se 61 Creatine Kinase Total Protein 6.3 L Albumin 2.6 L Globulin 3.7 Valproic Acid Vitals: Last Vital Signs Temp 97.8 F 08/20/20 00:00 Pulse 88 08/20/20 08:27 Resp 23 H 08/20/20 06:00 BP 153/77 08/20/20 06:00 Pulse Ox 95 08/20/20 08:27 Discharge Plan Discharge Patient Disposition: Xfer SNF Condition: Stable Prescriptions: New dexamethasone 6 mg tablet 6 mg PO Q24H Qty: 5 RF: 0 metronidazole [Flagyl] 250 mg tablet 250 mg PO Q8H Qty: 15 RF: 0 cefdinir 300 mg capsule 300 mg PO DAILY 5 Days Qty: 5 RF: 0 Continued acetaminophen [Tylenol] 325 mg tablet 650 mg PO BID@,18 RF: 0 ziprasidone HCl [Geodon] 60 mg capsule 60 mg PO BID@, RF: 0 hydrocodone-acetaminophen 5-325 mg tablet 1 tab PO Q4H PRN (Reason: Pain) RF: 0 gabapentin [Neurontin] 100 mg capsule 100 mg PO BID@,18 RF: 0 divalproex 250 mg tablet,delayed release (DR/EC) 250 mg PO TID@,, RF: 0 clonazepam 0.5 mg tablet 0.25 mg PO DAILY@20 RF: 0 rosuvastatin 5 mg tablet 2.5 mg PO DAILY@20 RF: 0 memantine 5 mg tablet 5 mg PO BID@, RF: 0 pantoprazole 20 mg tablet,delayed release (DR/EC) 20 mg PO DAILY@06 RF: 0 cholecalciferol (vitamin D3) 50 mcg (2,000 unit) capsule 50 mcg PO Q7D RF: 0 doxazosin 1 mg tablet 1 mg PO DAILY@20 RF: 0 fentanyl 25 mcg/hr patch 72 hour 1 patch TRANSDERMA Q72H RF: 0 allopurinol 100 mg tablet 100 mg PO DAILY@08 RF: 0 Novolog Flexpen U-100 Insulin 100 unit/mL (3 mL) insulin pen 5 unit SUBCUT BID RF: 0 Tresiba FlexTouch U-100 100 unit/mL (3 mL) insulin pen 60 unit SUBCUT DAILY@20 RF: 0 Tylenol 325 mg Tablet 650 mg PO Q6H PRN (Reason: Pain) RF: 0 ketotifen fumarate 0.025 % (0.035 %) Drops 2 drp OPHTHALMIC (EYE) BID@, RF: 0 LiquiTears 1.4 % Drops 1 drp OPHTHALMIC (EYE) TID@,, RF: 0 alprazolam 0.25 mg Tablet 0.25 mg PO DAILY PRN (Reason: Anxiety) RF: 0 sodium bicarbonate 650 mg Tablet 650 mg PO BID@, RF: 0 Alejandra-Lanta 200-200-20 mg/5 mL Suspension 10 ml PO BID PRN (Reason: Stomach Upset) RF: 0 Acidophilus Capsule 1,000 mmu cells PO BID@, RF: 0 Refresh 1 % Drops, Liquid Gel 1 - 2 drp OPHTHALMIC (EYE) Q6H PRN (Reason: Dry Eyes) RF: 0 Discontinued Levaquin 750 mg Tablet See Rx Instructions .ROUTE .COMPLEX RF: 0 Discharge Orders: Discharge Order (Routine); Ordered 08/20/20 Ordered By: Diogo Massey Referrals: [facility] [Outside] Cheng Warner MD [Referring] - 1 week Joaquin Purdy Jr, MD [Primary Care Provider] - 4-7 days Discharge Activity: Increase activity as tolerated Activity Restrictions/Additional Instructions: Please call your doctor or present to emergency department if your condition worsens or you develop diarrhea, lightheadedness, fatigue or see blood in your stool or black stool. Patient to continue with speech, physical and occupational therapy. Patient to continue with dysphagia diet as recommended by speech therapy. 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
--- NOTE | 2020-08-20 09:50 | PC.NURSE ---
Zurita removed Zurita catheter removed by nurse by Dr aguila. patient tolerated well.
--- NOTE | 2020-08-20 10:29 | DCPLANNER ---
Pg 2 of IM explained to Sister; Zari Davison @ [phone]. She believes it will be ok but wants to talk with him if possible. Manager [employer] doesn't know if that is but asks Nurse; Manasa in [facility] to phone her. Especially since she has questions about his status.
--- NOTE | 2020-08-20 10:31 | PC.NURSE ---
Report called to [facility] Nurse spoke with ARABELLA Wilson to [facility] and gave report. all questions answered. Notified of ferreira catheter removed, skin issues, ostomy in place, new medications, medications to be discontinued, and follow up appointments needed.
--- NOTE | 2020-08-20 10:42 | PC.NURSE ---
Update to daughter Spoke with Zari, patent sister and updated on patient being DC back to [facility]. all questions answered.
[2020-08-20 11:00] LABS: Glucose Point of Care 369 mg/dL (70-110)
--- NOTE | 2020-08-20 12:56 | PC.NURSE ---
Report given to transfer crew. transfer of care given. vital signs on DC wnl. no patient belongings at bedside, nurse checked room.
== END 2020-08-20 12:57 | disposition skilled nursing facility (03) | DRG 177 ==
LOC: ER 15:37 → ICU 17:42
PROVIDERS: Admitting Provider Internal Medicine; Emergency Provider Family Medicine; PCP Family Medicine; Visit Provider Internal Medicine
DX: U07.1 COVID-19 (principal); J12.89 Other viral pneumonia; J69.0 Pneumonitis due to inhalation of food and vomit; J96.01 Acute respiratory failure with hypoxia; N17.9 Acute kidney failure, unspecified; F20.0 Paranoid schizophrenia; M62.82 Rhabdomyolysis; Z93.3 Colostomy status; E86.0 Dehydration; N18.9 Chronic kidney disease, unspecified; E11.22 Type 2 diabetes mellitus with diabetic chronic kidney disease; Z90.5 Acquired absence of kidney; Z66 Do not resuscitate; F41.1 Generalized anxiety disorder; G25.81 Restless legs syndrome; R13.12 Dysphagia, oropharyngeal phase; Z79.891 Long term (current) use of opiate analgesic; Z79.4 Long term (current) use of insulin
CPT/HCPCS: 12345; 36415; 36416; 36600; 51702; 71045; 80053; 80164; 81001; 82550; 82803; 82962; 83605; 83735; 85025; 85378; 86140; 87086; 92610; 96372; 99282; J0696; J1100; J1650; J1815